=== PATIENT | male | born 1970 | race Caucasian/White ===

== ENCOUNTER → 2023-12-19 06:27 | Day surgery (SDC) | payer OTHER, SELFPAY | LOC: GI 06:27 | PROVIDERS: ATTENDING PHYSICIAN Specialist | DX: K50.10 Crohn's disease of large intestine without complications (principal); R13.10 Dysphagia, unspecified; K22.89 Other specified disease of esophagus; K20.80 Other esophagitis without bleeding | CPT/HCPCS: 45380; 43239; 88305 ==

== ENCOUNTER 2024-05-30 05:09 | Observation (INO) | payer OTHER, SELFPAY ==
[2024-05-29 23:58] VITALS: BP 124/92
[2024-05-30] VITALS (10 sets, daily range): BP systolic 99–120; BP diastolic 60–91; PULSE 80; BMI 28.2
--- NOTE | 2024-05-30 00:38 | ED.GENMED ---
History of Present Illness
<DOLLY Argueta - Last Filed: 05/30/24 01:33>
General
Chief Complaint: Dizziness
Source: patient
Exam Limitations: none
Time Seen by Provider: 05/30/24 00:13
Nursing documentation reviewed up to this point in time: agreed with
History of Present Illness
History of Present Illness:
Pt is a 53 y/o M with pmhx of anxiety, panic attacks, GERD, and Crohns disease presents via EMS with complaints of dizziness, nausea, and headache x 2 hrs. Pt reported that he was laying down when he noticed a sudden onset of nausea after opening an
email from a customer and was unable to text on his phone. He stood up and felt fatigued, dizzy, sweaty, and lightheaded and had a syncopal episode. His caught him and helped him to the ground. He struck his left elbow on the sink and sustained
a 2 cm abrasion. The pt stated that he usually takes Klonopin for anxiety and sleep but did not take one tonight as he ran out. The patient also stated that his mouth was dry and dehydrated. He also mentioned that he received a 'vitamin C injection'
to his buttock yesterday and believes that it may be due to that. Denies LOC, head injury, chest pain, SOB, palpitations, weakness, photophobia, vision/hearing changes, vomiting, fever, chills, changes in urination or bowel movements.
The pt has a pmhx of Anxiety and has been on clonazepam for 2 weeks. He reports a panic attack 20 years ago however, at that time he had palpitations and presented to the ED to make sure it was not an acute OH. The pt stated that he has been under a
lot of stress recently as he is trying to find a new job and has been thinking about it every day.
Past History
<DOLLY Argueta - Last Filed: 05/30/24 01:33>
Past History
ED Past Medical History: GERD, Psychiatric (Anxiety, depression) and Other (crohns)
ED Past Surgical History: None
Social History
Tobacco: Non-smoker
Alcohol: None
Drug: None
Personal:
Living: with family
Employment: Employed (sales)
Review of Systems
<DOLLY Argueta - Last Filed: 05/30/24 01:33>
Review of Systems
Constitutional: Reports fatigue
EENT: Reports no symptoms
Respiratory: Reports no symptoms
Cardiac: Reports no symptoms
ABD/GI: Reports nausea
: Reports no symptoms
Musculoskeletal: Reports no symptoms
Skin: Reports other (2 cm abrasion over the right elbow)
Neurological: Reports dizzy and headache
Endocrine: Reports no symptoms
Hematologic/Lymphatic: Reports no symptoms
Psychiatric: Reports anxiety
Phy Exam
<DOLLY Argueta - Last Filed: 05/30/24 01:33>
General Physical Exam
General Presentation: well appearing and no apparent distress
General age: appears stated age
General Skin: warm and dry
General Habitus: normal
General Mental: alert
General Hydration: appears well hydrated
ENT Exam
ENT Exam: EOMI, neck supple, normocephalic and swallowing well
Eye Exam
Eye Exam: PERRL, EOMI, cornea clear, conjunctiva normal, visual acuity normal and visual lee normal
Cardiovascular Exam
Cardiovascular Exam: regular rate/rhythm, no edema, no gallop, no JVD, no murmur, normal peripheral pulses and no carotid bruit
Pulmonary Exam
Pulmonary Exam: lungs clear, no respiratory distress, no rales, chest non tender, no crackles, no rhonchi, no stridor, no wheezing and no cough
Gastrointestinal Exam
Gastrointestinal Exam: soft and non distended
Neurological Exam
Neurological Exam: alert, oriented x3, CN II-XII intact, no motor deficits, normal reflexs, no sensory deficits and speech normal
NIH Stroke Score
Level of Consciousness: 0 - Alert
LOC questions: 0-Answers both correctly
LOC Commands: 0-Performs both correctly
Best Gaze: 0-Normal
Visual Lee: 0=Normal, no visual loss
Facial palsy: 0=Normal, symmetrical
Motor - Right Arm: 0=No drift 10 seconds
Motor - Left Arm: 0=No drift 10 seconds
Motor - Right Le-No drift 5 seconds
Motor - Left Le-No drift 5 seconds
Limb Ataxia: 0-Absent
Sensation: 0-Normal
Best Language: 0-No aphasia
Dysarthria: 0-Normal
Extinction and Inattention: 0-No abnormality
Total Score:: 0
Mental
Mental Status: oriented to person, oriented to place and oriented to time
Describe Speech: normal speech
Cranial
Cranial Nerves: normal
EOM (CN3/4/6): intact
Sensory
Sensory Exam: intact
Musculoskeletal Exam
Musculoskeletal Exam: full ROM, no edema and neuro vasc intact
Skin Exam
Skin Exam: normal color, warm/dry and other (2 cm abrasion over the right elbow)
Psychiatric Exam
Psychiatric Exam: normal mood/affect
Patricalt;Heber Sarmiento DO - Last Filed: 05/30/24 03:45>
NIH Stroke Score
Total Score:: 0
Course
<DOLLY Argueta - Last Filed: 05/30/24 01:33>
Orders/Labs/Results
Orders:
Orders
05/30/24 00:07
EKG [Electrocardiogram (*1)] Urgent
Reason for Study: Vertigo / Dizzy
EKG- Treatment ONCE
05/30/24 00:15
Complete Blood Count/With Diff Urgent
Comprehensive Metabolic Panel Urgent
05/30/24 00:57
0.9% Sodium Chloride 1000 ml [Nss] 1,000 ml IV BOLUS
Ketorolac [Toradol] 15 mg IV NOW STA
Ondansetron Injectable [Zofran] 4 mg IV NOW STA
05/30/24 01:03
Ondansetron Injectable [Zofran] 4 mg .ROUTE .STK-MED ONE
05/30/24 01:04
Ketorolac [Toradol] 15 mg .ROUTE .STK-MED ONE
05/30/24 02:05
CT Head W/o Iv Contrast Urgent
Comment:
Reason For Exam: headache, dizzy
05/30/24 02:58
Meclizine [Antivert] 25 mg PO NOW STA
Abnormal Lab Results
05/30/24
00:15
Abs Immat Gran (auto) 0.1 H 10^3/uL
(0-0.05)
Immature Gran % 1.2 H %
(0-0.5)
Neutrophils % 38.9 L %
(42.2-75.2)
Monocytes % 9.6 H %
(1.7-9.3)
Glucose 118 H mg/dl
(70-99)
05/30/24 00:15
05/30/24 00:15
Vital Signs
Initial and Last Documented VS:
Initial Vital Signs
Temp Pulse Resp BP Pulse Ox
97.5 F 79 18 124/92 99
05/29/24 23:58 05/29/24 23:58 05/29/24 23:58 05/29/24 23:58 05/29/24 23:58
Last Documented Vital Signs
Temp Pulse Resp BP Pulse Ox
97.5 F 85 11 120/91 99
05/29/24 23:58 05/30/24 03:00 05/30/24 02:22 05/30/24 03:00 05/30/24 01:44
jean;Heber Sarmiento DO - Last Filed: 05/30/24 03:45>
Orders/Labs/Results
Orders:
Orders
05/30/24 00:07
EKG [Electrocardiogram (*1)] Urgent
Reason for Study: Vertigo / Dizzy
EKG- Treatment ONCE
05/30/24 00:15
Complete Blood Count/With Diff Urgent
Comprehensive Metabolic Panel Urgent
05/30/24 00:57
0.9% Sodium Chloride 1000 ml [Nss] 1,000 ml IV BOLUS
Ketorolac [Toradol] 15 mg IV NOW STA
Ondansetron Injectable [Zofran] 4 mg IV NOW STA
05/30/24 01:03
Ondansetron Injectable [Zofran] 4 mg .ROUTE .STK-MED ONE
05/30/24 01:04
Ketorolac [Toradol] 15 mg .ROUTE .STK-MED ONE
05/30/24 02:05
CT Head W/o Iv Contrast Urgent
Comment:
Reason For Exam: headache, dizzy
05/30/24 02:58
Meclizine [Antivert] 25 mg PO NOW STA
Abnormal Lab Results
05/30/24
00:15
Abs Immat Gran (auto) 0.1 H 10^3/uL
(0-0.05)
Immature Gran % 1.2 H %
(0-0.5)
Neutrophils % 38.9 L %
(42.2-75.2)
Monocytes % 9.6 H %
(1.7-9.3)
Glucose 118 H mg/dl
(70-99)
05/30/24 00:15
05/30/24 00:15
Vital Signs
Initial and Last Documented VS:
Initial Vital Signs
Temp Pulse Resp BP Pulse Ox
97.5 F 79 18 124/92 99
05/29/24 23:58 05/29/24 23:58 05/29/24 23:58 05/29/24 23:58 05/29/24 23:58
Last Documented Vital Signs
Temp Pulse Resp BP Pulse Ox
97.5 F 85 11 120/91 99
05/29/24 23:58 05/30/24 03:00 05/30/24 02:22 05/30/24 03:00 05/30/24 01:44
<DOLLY Argueta - Last Filed: 05/30/24 01:33>
MDM/Problems Addressed
Differential Diagnosis Includes:
Orthostatic hypotension
Panic attack
<DOLLY Argueta - Last Filed: 05/30/24 01:33>
*Critical Care Note
Total Time (30-74mins, 75-104mins- exclusive of procedures): Not Applicable
ED Attending Note
<DOLLY Argueta - Last Filed: 05/30/24 01:33>
-
Portions of this chart may have been created with voice recognition software.� Occasional wrong word or��sound alike� substitutions may have occurred due to the inherent limitations of voice recognition software.
Discharge Plan
Departure
Patient Disposition: Admit
Date of Disposition: 05/30/24
Time of Disposition: 03:45
Admit to: Telemetry
Presentation/result/management discussed w/ accepting MD/DO: Hospitalist
Condition: Fair
Discharge Problem:
Vertigo
Prescriptions:
No Action
fluoxetine [Prozac] 40 MG capsule
40 mg PO DAILY
lamotrigine [Lamictal] 150 MG tablet
150 mg PO BID
potassium chloride 10 MEQ capsule, extended release
10 meq PO BID
bupropion HCl 150 MG tablet extended release 24 hr
450 mg PO DAILY
mesalamine [Pentasa] 500 MG capsule, extended release
4 tab PO BID
Referrals:
Eduardo Hudson MD [Family Provider] -
Interventions
Interventions:
*Risk Screen - Suicide Last Done: 05/29/24 23:58
*General Assessment Last Done: 05/29/24 23:58
*Neglect/Abuse Screening Last Done: 05/29/24 23:58
ED- Fall Risk Assessment Last Done: 05/30/24 01:00
ED- Neurological Assessment Last Done: 05/30/24 01:00
ED- Cardiac Assessment Last Done: 05/30/24 01:00
ED Swallowing Screen Last Done: 05/30/24 01:00
Discharge Date and Time
Print Language: WELSH
[2024-05-30 00:49] LABS: % Basophils 0.4 % (0-2); % Immature Granulocytes 1.2 % (0-0.5); % Lymphocytes 49.9 % (20.5-51.1); % Monocytes 9.6 % (1.7-9.3); % Neutrophils 38.9 % (42.2-75.2); Absolute Immature Granulocytes 0.1 10^3/uL (0-0.05); Absolute Lymphocytes 2.5 10^3/uL (1.2-3.4); Absolute Monocytes 0.5 10^3/uL (0.1-0.6); Absolute Neutrophils 1.9 10^3/uL (1.4-6.5); Hematocrit 45.2 % (39.0-52.0); Mean Corp Hgb Conc. 35.4 g/dL (33.0-37.0); Mean Platelet Volume 8.9 fL (7.4-10.4); Nucleated Red Blood Cells % 0 % (-); Platelet Count 296 10^3/uL (130-400); Red Blood Cell Count 5.51 10^6/uL (4.70-6.10); Red Cell Dist. Width 12.4 % (11.5-14.5); White Blood Cell Count 4.9 10^3/uL (4.8-10.8)
[2024-05-30 00:52] LABS: ALT (SGPT) 21 U/L (0-50); AST (SGOT) 23 U/L (17-59); Albumin 4.5 g/dl (3.5-5.0); Alkaline Phosphatase 49 U/L (38-126); Blood Urea Nitrogen 20 mg/dl (9-20); Calcium 9.5 mg/dl (8.4-10.2); Carbon Dioxide 23 mmol/L (22-30); Chloride 105 mmol/L (98-107); Estimated Creatinine Clearance 76 ml/min; Glucose 118 mg/dl (70-99); Potassium 3.5 mmol/L (3.5-5.1); Sodium 142 mmol/L (135-145); Total Bilirubin 0.4 mg/dl (0.2-1.3); Total Protein 6.6 g/dl (6.3-8.2); eGFR > 60.00
[2024-05-30] MEDS: TORADOL 15 MG IV (01:06)
[2024-05-30] MEDS: ZOFRAN 4 MG IV (01:06)
[2024-05-30] MEDS: NSS 1000 IV (01:09)
[2024-05-30] MEDS: ANTIVERT 25 MG PO (03:06)
--- NOTE | 2024-05-30 04:18 | HPS.HSE ---
Family Physician
-
Family Physician: Eduardo Hudson
Chief Complaint
-
Dizziness and fall
History of Present Illness
DC 53-year-old male with past medical history significant for Crohn's disease, anxiety and depression as well as nephrolithiasis who presents to the emergency department with episode of dizziness that started suddenly while laying down on his bed.
Patient reports been in usual state of health up until the evening yesterday when he started having dizzy episode. He reported that he was laying in bed looking at his phone and reading an email when all of a sudden his vision became blurry. He
was not clear whether he was having double vision or not. He reported that he called his pain to let her know that he was not feeling well he was nauseous and he had difficulty reading his email. When he tried to get up he felt very dizzy and
fell. He reports a moving/spinning sensation without fainting. He did not fall to the floor but was supported to the ground by his . Patient reported that he had remained dizzy since then which has been over the last 6 hours. He denies any
headache. He denies any actual loss of vision. He denies any vomiting. He denies any numbness or tingling. He denies any weakness. Denies any fevers or chills. He denies tinnitus. He denies hearing loss. He denies any sick contacts. He
denies any recent episodes of diarrhea or vomiting. He has been taking Klonopin 0.5 mg at bedtime for the last 2 weeks but did not take it denied before the event. He denies alcohol use. Denies tobacco smoking. Reports being under a lot of
stress due to looking for a new job recently.
Patient reports that he has been having a prodromal illness with weakness and fatigue. He had had sick extensive viral testing. Ultimately had elevated Juliana-Rajput serology but negative Monospot testing. He denies prior history of TIA or CVA.
He denies any prior history of CAD. He denies diabetes. He reports elevated cholesterol.
In the Emergency Department the patient was afebrile he was nontachycardic blood pressure was normal at 118/90, oxygen saturation was normal. ECG showed normal sinus rhythm at a rate of 72. CT of the head was negative. CBC was completely within
normal limits. Chemistries were showed no acute abnormalities. Patient was given IV fluids and some medications. Was attempted to ambulate in the ED but felt dizzy and could not walk. He was complaining of dizziness even while laying down
Medical History
Past Medical History
Past Medical History: Reports Psychiatric (Depression, anxiety)
Additional Past Medical History:
Nephrolithiasis
Crohn's in remission
Migraine headaches
Past Surgical History: Reports None
Social History
Tobacco: Non-smoker
Alcohol: None
Drug: None
Personal:
Living: With Family
Employment: Not Employed
Family History
Family History: Not pertinent
Allergies / Home Medications
Allergies reflects when Allergies were last updated in [employer].
Home Medications with original date entered in [employer]
Allergy/Medication List:
Allergies
Allergy/AdvReac Type Severity Reaction Status Date / Time
clarithromycin [From Biaxin] Allergy Unknown Verified 05/30/24 03:51
Sulfa (Sulfonamide Allergy Unknown Verified 05/30/24 03:51
Antibiotics)
Home Medications
bupropion HCl 150 mg 24 hr tablet, extended release 450 mg PO DAILY 08/26/17
fluoxetine 40 mg capsule (Prozac) 40 mg PO DAILY 08/26/17
lamotrigine 150 mg tablet (Lamictal) 150 mg PO BID 08/26/17
mesalamine 500 mg capsule,extended release (Pentasa) 4 tab PO BID 08/26/17
potassium chloride 10 mEq capsule,extended release 10 meq PO BID 08/26/17
Review of Systems
-
History Source: Patient
Constitutional: Reports No Symptoms
EENT: Reports No Symptoms
Respiratory: Reports No Symptoms
Cardiac: Reports No Symptoms
Abdomen/GI: Reports No Symptoms
: Reports No Symptoms
Musculoskeletal: Reports No Symptoms
Skin: Reports No Symptoms
Neurological: Reports Dizzy
Endocrine: Reports No Symptoms
Hematologic/Lymphatic: Reports No Symptoms
Psych: Reports No Symptoms
Physical Exam
Vital Signs
Vital Signs
Temp Pulse Resp BP Pulse Ox
97.5 F 87 14 120/91 99
05/29/24 23:58 05/30/24 03:51 05/30/24 03:51 05/30/24 03:00 05/30/24 01:44
Physical Exam
General: Well Developed, Well Nourished and Conversant
HEENT: NormoCephalic, Anicteric, Moist mucous membranes, Atraumatic, PERRLA, [place] Conjunctivae, No Ptosis and Neck Nontender
Respiratory: Clear
Cardiac: S1/S2 and Regular Rhythm
Breast: Deferred by me
GI: Soft, Non Tender, Non Distended and Normal Bowel Sounds
Rectal: Deferred by Provider
Genito-urinary: Deferred by me
Musculoskeletal: No Clubbing, No Cyanosis and No Edema
Skin: Warm
Neuro: AO x 3, No Motor Deficits, Cranial Nerves Intact, No Sensory Deficits and DTR's Intact & Symmetrical
Hematologic/Lymphatic: No Lymphadenopathy
Psych: Anxious
Laboratory Results
-
05/30/24 00:15
05/30/24 00:15
Laboratory Results
Total Bilirubin 0.4 mg/dl (0.2-1.3) 05/30/24 00:15
AST 23 U/L (17-59) 05/30/24 00:15
ALT 21 U/L (0-50) 05/30/24 00:15
Alkaline Phosphatase 49 U/L (38-126) 05/30/24 00:15
Data Reviewed
-
CT Scan: Report Reviewed by me
Medical Tests (Nuc Med, Echo, EKG etc): Image Personally Visualized and interpreted
Lab Data: Labs Reviewed by me
Old Records: Reviewed
Impression/Plan
-
IMPRESSION:
53-year-old with past medical history of ulcerative colitis in remission, depression anxiety presenting to the emergency department with acute onset of vertigo that started about 6 hours ago. Patient has persistent vertigo that is not associated
with head movement or standing up. He is hemodynamically stable afebrile and otherwise in no acute distress. He has no focal neurological deficits on examination. No headache. CT of the head was negative. ECG shows no arrhythmia, telemetry was
negative.
PLAN:
1. Dizziness - Acute vertigo w/o focal deficits on exam. Persistent, non-paroxysmal and not associated with positional changes. No nystagmus. No hearing loss or tinnitus. No vertical diplopia. Suspect acute vestibular neuritis. No prior
history so unlikely forms of subacute vertigo like neuroma or menieres. Has symptoms with normal telemetry and bp. Not orthostatic. No cardiac symptoms. Not related to anxiety. Has improved after meclizine but still present.
- admit to med/surg
- s/p 1 L NS, not hypovolemic
- continue meclizine prn
- antiemetics
- neurology consult, hold off mri pending neurology eval.
2. Depression/Anxiety - Considerable increase in stress and anxiety recently. Denies SI, HI
- clonopin 0.5 prn
- vortioxetine hs (not available)
- lamictal hs
- buproprion hs
3. Crohns - in remisssion
- continue pentasa 500 mg 8 tabs hs
4. Nephrolithiasis
- PPX with K Citrate ER 10meq daily (on hold temporarily while on meclizine)
DVT PPX - SCDs
Code Status - full
[2024-05-30] MEDS: REGLAN 10 MG IV (05:14)
[2024-05-30] MEDS: KLONOPIN 0.5 MG PO (05:14)
--- NOTE | 2024-05-30 08:54 | W.PN.UPDATE ---
Update Note
Progress Note Update
seen and examined. no new complaints. no acute overniggt events
remains to have intermittent dizziness, intermittent nausea and headache that started with this room spinning sensation
worse with head movements.
no tinitus, loss of hearing, sore throat, runny nose
no numbness tingline loss of sensations, chest pain, palpitations
no diarrhea constipaiton
states he would like to try to stands
admits to 3 week hx of generalized weakness and chills. tested for mono, no evidence of acute but noted antibodies as expected
no pharngeal erthema
no nystagmus (horizont/vertical). eomi. scleral anicteric
5/5 motor strenght in b/l ue and le
cn 11-xii intact, aaox3
vertigo. ddx board.
neuro to see
if neuro recs mri will get
tele monitor
no indication for steroids
may need pt/ot for balance training/vestibular rehab if continues to feel dizzy
possible dc later today if able to stand wihout dizziness and neuro does not have any further recs for him.
[2024-05-30 09:25] LABS: Glycohemoglobin (HgbA1c) 5.2 % (4.0-5.6)
[2024-05-30 09:30] LABS: HDL Cholesterol 54 mg/dl; LDL Cholesterol, Calculated 174 mg/dl; Total Cholesterol 249 mg/dl (50-199); Triglyceride 109 mg/dl (10-149); Very Low Density Lipoprotein 21 mg/dl (0-30)
[2024-05-30] MEDS: TYLENOL 650 MG PO (09:32)
--- NOTE | 2024-05-30 10:05 | CON.NEURO4 ---
Consultation - Neurology 4
-
CONSULTING PHYSICIAN: Roderick Keith MD
REFERRING PHYSICIAN: Hospitalists/Dr. Pettit
DICTATED BY: NEREIDA Donald
DATE/TIME OF REQUEST: 05/30/24
DATE/TIME OF CONSULTATION: 05/30/24
Reason for Consultation: Dizziness
History of Present Illness:
This is a 53-year-old right-handed male who has presented to the hospital with report of dizziness, nausea, and headache. Patient reports that for the past 4 weeks he has had generalized body aches and fatigue similar to when he had mono several
years ago, but outpatient workup has been unremarkable. Last evening, he was lying in bed looking at email on his phone when suddenly the words appeared blurry and he developed a spinning sensation. He tried to ambulate but was unable to severe
spinning and nausea. He also notes that he developed a headache that he rates a 7-8/10 associated with mild photophobia. His called EMS. CT head was obtained on arrival in the ER and demonstrates mild ethmoid sinusitis but no other acute
findings. He reports that meclizine did not improve his symptoms but Toradol, reglan, klonopin have improved things. This morning (05/30/24), he has been able to ambulate to the bathroom without assistance at least. He notes that the dizziness is
still there especially with trying to read or change position, but overall it is much improved. His headache is currently across his forehead and he rates it a 5/10. He denies any ear fullness, tinnitus, or hearing changes. He notes that his
symptoms seem constant but the severe symptoms are brief. He reports a distant history of severe headaches associated with nausea and photophobia but he has not had one in years. He used to take Excedrin migraine with complete relief of his
symptoms. He denies any history of TIA, stroke, or events similar to this in the past. He does note recent significant employment stressors and has been taking clonazepam at bedtime due to insomnia.
Past Medical History: HLD, Chrohn's disease, migraines, GERD, renal calculi, anxiety, depression
Surgical History: ESWL
Family History: Son- Katalina.
Social History: Rare alcohol. Rare marijuana.
Allergies: Clarithromycin, sulfa.
Home Medications: See below.
Review of Symptoms:
Patient denies any fever, chest pain, shortness of breath, or symptoms.
�Per the HPI.�All systems are reviewed negative except above.
Physical Exam:
The patient is afebrile, abdomen is nondistended, breathing is unlabored, skin is warm and dry, no edema.
NIH Stroke Scale:
I performed the NIH stroke scale on the patient on 05/30/24 at 1030. The patient scored 0 points on the NIH stroke scale assessment, which were assigned as follows: See below.
Neurologic Examination:
The patient is awake, alert and oriented x 3. He is able to follow commands and answer questions appropriately. There is no aphasia or dysarthria. On cranial nerve assessment, pupils are 3 mm bilateral, round and reactive to light and
accommodation. Visual lee are full. Extraocular movements are intact. No nystagmus noted. Facial sensations are intact and bilaterally symmetrical, there is no facial asymmetry. Hearing is intact bilaterally to normal conversation volume. Tongue
palate and uvula are midline. Sternocleidomastoid strengths are full bilaterally. Motor strengths are 5/5 bilateral upper and lower extremities on medical research Torres Martinez scale. There is no drift or involuntary movement noted. Deep tendon reflexes
are 2+ bilateral upper and lower extremities and Babinski is absent bilaterally. Sensations of touch, temperature and vibration are intact and bilaterally symmetrical. There was no extinction noted on double simultaneous stimulation. Coordination is
intact by finger to nose bilaterally. Romberg is negative.
Lab Results: See below.
Neuro Imaging:
1. CT head 05/30/24: There are no intracranial abnormalities. There is mild bilateral ethmoid sinusitis.
Differentials for the patient's presentation include:
1. Vestibular migraine possible.
2. PT evaluation was positive for L sided BPPV.
3. Recent viral symptoms.
4. Very low concern for stroke.
Patient has the following risk factors for their symptoms: Hx migraines, recent viral symptoms
Recommendations:
-Provide script for outpatient PT on discharge as recommended by PT.
-Provide prochlorperazine 10mg IV x1 now for headache relief.
-Supportive care.
-Patient can follow-up with Neurology as an outpatient, may see the PILOT TEACHER or one of the physicians.
Discussed patient care with: Dr. Keith, the patient
Vital Signs and Labs
-
Vital Signs and Labs:
Vital Signs
Temp Pulse Resp BP Pulse Ox
98.3 F 92 19 99/62 94
05/30/24 07:19 05/30/24 09:30 05/30/24 09:30 05/30/24 07:19 05/30/24 09:40
Lab Results
05/30/24 00:15
05/30/24 00:15
Sodium 142 mmol/L (135-145) 05/30/24 00:15
Potassium 3.5 mmol/L (3.5-5.1) 05/30/24 00:15
BUN 20 mg/dl (9-20) 05/30/24 00:15
Glucose 118 mg/dl (70-99) H 05/30/24 00:15
Calcium 9.5 mg/dl (8.4-10.2) 05/30/24 00:15
LDL Cholesterol, Calc 174 mg/dl 05/30/24 00:15
Vitamin B12 608 pg/ml (239-931) 05/30/24 00:15
Medications
-
Medications:
Generic Name Dose Route Start Last Admin
Trade Name Freq PRN Reason Stop Dose Admin
Acetaminophen 650 mg 05/30/24 05:25 05/30/24 09:32
Acetaminophen 325 Mg Tablet PO 06/27/24 05:24 650 mg
Q4HPRN PRN Administration
mild pain/PEREIRA/temp> 100.4F
Bisacodyl 10 mg 05/30/24 05:25
Bisacodyl 10 Mg Rectal Suppository RECTAL 06/27/24 05:24
A90AHFT PRN
constipation
Bupropion HCl 450 mg 05/30/24 22:00
Bupropion (24hr) Extended Release 150 Mg Tablet PO 06/27/24 21:59
HS KOLBY
Clonazepam 0.5 mg 05/30/24 05:25
Clonazepam 0.5 Mg Tablet PO 06/27/24 05:24
DAILY PRN
anxiety
Meclizine HCl 25 mg 05/30/24 05:25
Meclizine 25 Mg Tablet PO 06/27/24 05:24
Q8HPRN PRN
Vertigo
Mesalamine 500 mg 05/30/24 22:00
Mesalamine 250 Mg Controlled Release Capsule PO 06/27/24 21:59
HS KOLBY
Non-Formulary Medication 300 mg 05/30/24 22:00
Lamotrigine [Lamictal] PO 06/27/24 21:59
HS KOLBY
Ondansetron HCl 4 mg 05/30/24 05:25
Ondansetron 4 Mg/2 Ml Vial IV 06/27/24 05:24
Q6HPRN PRN
nausea and vomiting
Polyethylene Glycol 17 grams 05/30/24 05:25
Polyethylene Glycol Powder 17 Grams Packet PO 06/27/24 05:24
DAILYPRN PRN
constipation
Senna/Docusate Sodium 1 tablet 05/30/24 05:25
Docusate W/Senna (Debbie-Colace) Tablet PO 06/27/24 05:24
BIDPRN PRN
constipation
NIH Stroke Score
Subsequent NIH Scale
Date of Subsequent NIH Scale: 05/30/24
Time of Subsequent NIH Scale: 10:30
NIH Stroke Score
Level of Consciousness: 0 - Alert
LOC Questions: 0-Answers both correctly
LOC Commands: 0-Performs both correctly
Best Horizontal Gaze: 0-Normal
Visual Lee: 0=Normal, no visual loss
Facial Palsy: 0=Normal, symmetrical
Motor - Right Arm: 0=No drift 10 seconds
Motor - Left Arm: 0=No drift 10 seconds
Motor - Right Le-No drift 5 seconds
Motor - Left Le-No drift 5 seconds
Limb Ataxia: 0-Absent
Sensation: 0-Normal
Best Language: 0-No aphasia
Dysarthria: 0-Normal
Extinction and Inattention: 0-No abnormality
Total Score:: 0
[2024-05-30 10:24] LABS: TSH Reflex To Free T4 2.12 uIU/ml (0.47-4.68)
[2024-05-30 10:28] LABS: Ferritin 24.8 ng/ml (17.9-464.0)
[2024-05-30 11:00] LABS: Folate 10.3 ng/ml (2.76-20); Vitamin B12 608 pg/ml (239-931)
[2024-05-30] MEDS: COMPAZINE 10 MG IV (11:40)
--- NOTE | 2024-05-30 15:23 | PTCARENOTE ---
Pt received as a hold @ 0700. Seem by Hospitalist, Neurology, and Physical Therapy. Recommendation made for outpatient physical therapy. Discharge order in place. Instructions reviewed with no further question. IV site removed. Pt escorted out by
staff in wheelchair to 's car.
== END 2024-05-30 15:31 | disposition home or self-care (01) ==
LOC: ED 05:09
PROVIDERS: ADMITTING PHYSICIAN Internal Medicine; ATTENDING PHYSICIAN Hospitalist; CONSULT PHYSICIAN Psychiatry & Neurology Neurology; EMERGENCY PHYSICIAN Emergency Medicine; FAMILY PHYSICIAN Internal Medicine
DX: R42 Dizziness and giddiness (principal); R51.9 Headache, unspecified; R53.83 Other fatigue; R55 Syncope and collapse; H53.8 Other visual disturbances; R53.1 Weakness; J32.2 Chronic ethmoidal sinusitis; F41.9 Anxiety disorder, unspecified; K21.9 Gastro-esophageal reflux disease without esophagitis; K50.90 Crohn's disease, unspecified, without complications; F41.0 Panic disorder [episodic paroxysmal anxiety]; E78.00 Pure hypercholesterolemia, unspecified; F32.A Depression, unspecified; Z87.442 Personal history of urinary calculi; Z88.2 Allergy status to sulfonamides; Z88.8 Allergy status to other drugs, medicaments and biological substances
CPT/HCPCS: 70450; 80053; 80061; 82607; 82728; 82746; 83036; 84443; 85025; 93005; 96361; 96374; 96375; 99285; G0378

== ENCOUNTER → 2024-08-07 12:06 | Outpatient (REF) | payer OTHER, SELFPAY | LOC: MRI 12:06 | PROVIDERS: ATTENDING PHYSICIAN Nurse Practitioner Adult Health; FAMILY PHYSICIAN Internal Medicine | DX: R42 Dizziness and giddiness (principal); R47.9 Unspecified speech disturbances | CPT/HCPCS: 70544; 70549; 70553; A9585 ==

== ENCOUNTER → 2025-05-12 09:03 | Outpatient (REF) | payer SELFPAY | LOC: HWRAD 09:03 | PROVIDERS: ATTENDING PHYSICIAN Nurse Practitioner | DX: E78.5 Hyperlipidemia, unspecified (principal) | CPT/HCPCS: 75571 ==